=== PATIENT | male | born 1955 | race Caucasian/White ===

== ENCOUNTER 2016-12-22 16:34 | Outpatient (CLI) | payer OTHER ==
[2016-12-22 16:49] LABS: BASOPHILS # (AUTO) 0.1 10^3/uL (0.0-0.1); BASOPHILS % (AUTO) 0.7 %; EOSINOPHILS # (AUTO) 0.3 10^3/uL (0.0-0.7); EOSINOPHILS % (AUTO) 4.6 %; HCT - HEMATOCRIT 40.4 % (42.0-52.0); HGB - HEMOGLOBIN 13.4 g/dL (14.0-18.0); LYMPHOCYTES # (AUTO) 1.9 10^3/uL (1.5-3.5); LYMPHOCYTES % (AUTO) 27.3 %; MEAN CORPUSCULAR HEMOGLOBIN 30.8 pg (27.0-31.0); MEAN CORPUSCULAR VOLUME 93.2 fL (80.0-94.0); MONOCYTES # (AUTO) 0.5 10^3/uL (0.0-1.0); MONOCYTES % (AUTO) 6.7 %; NEUTROPHILS # (AUTO) 4.3 10^3/uL (1.5-6.6); NEUTROPHILS % (AUTO) 60.7 %; RED BLOOD COUNT 4.34 10^6/uL (4.70-6.10); RED CELL DISTRIBUTION WIDTH 13.6 % (12.0-15.0); UNCORRECTED WHITE BLOOD COUNT 7.1 x10^3/uL; WHITE BLOOD COUNT 7.1 x10^3/uL (4.8-10.8)
[2016-12-22 17:09] LABS: ALBUMIN/GLOBULIN RATIO 1.4 (1.0-2.2); BILIRUBIN,TOTAL 0.5 mg/dL (0.2-1.0); BUN - BLOOD UREA NITROGEN 17 mg/dL (6-20); CALCIUM 9.1 mg/dL (8.5-10.3); CARBON DIOXIDE - CO2 25 mmol/L (21-32); CHLORIDE 106 mmol/L (101-111); CHOL/HDL RATIO 3.5 (<5.0); CHOLESTEROL 181 mg/dL; CREATININE 0.9 mg/dL (0.6-1.2); GFR - MDRD 86 (>89); GLUCOSE 92 mg/dL (70-100); HDL CHOLESTEROL 51 mg/dL; LDL/HDL RATIO 2.3 (<3.6); POTASSIUM 3.9 mmol/L (3.5-5.0); SODIUM 138 mmol/L (135-145); TOTAL PROTEIN 7.2 g/dL (6.7-8.2); TRIGLYCERIDES 63 mg/dL; VLDL CHOLESTEROL 13 mg/dL
[2016-12-26 09:53] LABS: TEST RESULT REPORT (())
== END 2016-12-22 16:35 | disposition home or self-care (01) ==
LOC: LAB 16:34
PROVIDERS: ATTEND Physician Assistant Medical
DX: Z00.00 Encounter for general adult medical examination without abnormal findings (principal); Z12.5 Encounter for screening for malignant neoplasm of prostate; E78.2 Mixed hyperlipidemia; Z79.899 Other long term (current) drug therapy; D64.9 Anemia, unspecified; Z72.89 Other problems related to lifestyle
CPT/HCPCS: 36415; 80053; 80061; 81599; 84153; 84443; 85025; 86803

== ENCOUNTER 2017-12-21 09:53 | Outpatient (CLI) | payer OTHER ==
[2017-12-21 12:30] LABS: BASOPHILS % (AUTO) 0.7 %; EOSINOPHILS # (AUTO) 0.3 10^3/uL (0.0-0.7); EOSINOPHILS % (AUTO) 5.3 %; HGB - HEMOGLOBIN 13.9 g/dL (14.0-18.0); LYMPHOCYTES # (AUTO) 1.9 10^3/uL (1.5-3.5); LYMPHOCYTES % (AUTO) 31.5 %; MEAN CORPUSCULAR HEMOGLOBIN 31.5 pg (27.0-31.0); MEAN CORPUSCULAR HGB CONC 33.4 g/dL (32.0-36.0); MEAN CORPUSCULAR VOLUME 94.5 fL (80.0-94.0); MEAN PLATELET VOLUME 8.4 fL (7.4-11.4); MONOCYTES # (AUTO) 0.4 10^3/uL (0.0-1.0); MONOCYTES % (AUTO) 5.9 %; NEUTROPHILS # (AUTO) 3.4 10^3/uL (1.5-6.6); NEUTROPHILS % (AUTO) 56.6 %; PLT - PLATELET COUNT 224 10^3/uL (130-450); RED BLOOD COUNT 4.42 10^6/uL (4.70-6.10); RED CELL DISTRIBUTION WIDTH 13.4 % (12.0-15.0); WHITE BLOOD COUNT 6.1 x10^3/uL (4.8-10.8)
[2017-12-21 13:09] LABS: ALBUMIN 4.2 g/dL (3.2-5.5); ALBUMIN/GLOBULIN RATIO 1.4 (1.0-2.2); ALKALINE PHOSPHATASE 51 IU/L (42-121); ALT ALANINE AMINOTRANSFERASE 18 IU/L (10-60); AST ASPARTATE AMINOTRANSFERASE 22 IU/L (10-42); BILIRUBIN,TOTAL 0.4 mg/dL (0.2-1.0); BUN - BLOOD UREA NITROGEN 15 mg/dL (6-20); CALCIUM 8.9 mg/dL (8.5-10.3); CARBON DIOXIDE - CO2 26 mmol/L (21-32); CHLORIDE 105 mmol/L (101-111); CHOL/HDL RATIO 3.4 (<5.0); CHOLESTEROL 165 mg/dL; GFR - MDRD 76 (>89); GLUCOSE 90 mg/dL (70-100); HDL CHOLESTEROL 49 mg/dL; SODIUM 135 mmol/L (135-145); TOTAL PROTEIN 7.3 g/dL (6.7-8.2)
[2017-12-21 13:28] LABS: LDL CHOLESTEROL,DIRECT 97 mg/dL
== END 2017-12-21 09:54 | disposition home or self-care (01) ==
LOC: LAB.R 09:53
PROVIDERS: ATTEND Physician Assistant Medical
DX: N40.0 Benign prostatic hyperplasia without lower urinary tract symptoms (principal); Z79.899 Other long term (current) drug therapy; D53.9 Nutritional anemia, unspecified; Z00.00 Encounter for general adult medical examination without abnormal findings
CPT/HCPCS: 80053; 80061; 83721; 84153; 84443; 85025

== ENCOUNTER 2018-01-25 10:50 | Outpatient (CLI) | payer OTHER ==
[2018-01-25] MEDS ORDERED: GADOBUTROL 10 MMOL/10 ML VIAL ONE (11:36)
[2018-01-25] MEDS ORDERED: GADOBUTROL 10 MMOL/10 ML VIAL IVP ONE (11:43)
--- NOTE | 2018-01-25 12:39 | MRI Report ---
Procedure Date: 01/25/2018 Accession Number: [id number] / [id number] Procedure: MRI - Brain W/WO CPT Code: FULL RESULT: EXAM: MRI BRAIN WITHOUT AND WITH CONTRAST EXAM DATE: 01/25/2018 11:06 AM. CLINICAL HISTORY: Numbness. Clinical concern for TIA. COMPARISON: None. TECHNIQUE: Multiplanar, multisequence T1-weighted and fluid-sensitive MR sequences of the brain were performed. Sequences optimized for routine evaluation. Other: None. IV Contrast: Without and with 8.5 mL Gadavist. FINDINGS: No restricted diffusion to suggest acute or recent ischemic infarct. No cerebral hemorrhage. No midline shift or abnormal subdural fluid collection. No hydrocephalus. Overall, normal brain volume for age. There is a broad-based sessile plaque-like region of precontrast T1 hyperintensity along the right side of the falx cerebri. This follows fat signal on all pulse sequences and measures 38 mm AP, 18 mm craniocaudal and 7 mm transverse, minimally contouring the adjacent medial service of the right superior frontal gyrus. No signal abnormality of the adjacent brain. No other evidence for intracranial enhancing or space-occupying mass. Contrast opacification of the major dural venous sinuses is present as expected. No focal cerebral white matter disease. The major arterial skull base flow voids are present. Minimal nonspecific paranasal sinus mucosal thickening. IMPRESSION: 1. No acute intracranial abnormality. Unremarkable appearance of the brain. No focal white matter disease. 2. Sessile plaque-like right parafalcine T1 hyperintense collection, incidental lipoma versus asymmetric parafalcine ossification, this could be clarified with noncontrast head CT. RADIA
== END 2018-01-25 10:51 | disposition home or self-care (01) ==
LOC: DI 10:50
PROVIDERS: ATTEND Physician Assistant Medical
DX: R20.0 Anesthesia of skin (principal); I77.810 Thoracic aortic ectasia
CPT/HCPCS: 70553; 93306; A9585

== ENCOUNTER 2018-02-11 15:37 | Outpatient (CLI) | payer OTHER ==
--- NOTE | 2018-02-12 08:18 | Ultrasound Report ---
Procedure Date: 02/11/2018 Accession Number: [id number] / [id number] Procedure: US - Carotid Doppler Complete CPT Code: FULL RESULT: EXAM: BILATERAL CAROTID AND VERTEBRAL ARTERY DUPLEX DOPPLER ULTRASOUND: EXAM DATE: 02/11/2018 04:59 PM. CLINICAL HISTORY: Numbness. COMPARISON: None. TECHNIQUE: Grayscale imaging, color Doppler, and duplex spectral Doppler were used to evaluate the carotid and vertebral arteries bilaterally. Static images were obtained. FINDINGS: There is mild atherosclerotic plaque seen primarily in the left carotid bulb. No significant or ulcerative plaque is identified in the right or left common or internal carotid arteries. Normal antegrade flow is present in bilateral vertebral arteries. VELOCITIES (cm/sec): RIGHT: RCCA Prox: PSV 68 cm/sec. RCCA Dist: PSV 66 cm/sec, EDV 20 cm/sec. RECA: PSV 58 cm/sec. R Bulb: PSV 47 cm/sec, EDV 14 cm/sec, ICA/CCA ratio 0.71. OSITO Prox: PSV 50 cm/sec, EDV 22 cm/sec, ICA/CCA ratio 0.75. OSITO Mid: PSV 59 cm/sec, EDV 32 cm/sec, ICA/CCA ratio 0.89. OSITO Dist: PSV 63 cm/sec, EDV 22 cm/sec, ICA/CCA ratio 0.95. RVA: PSV 28 cm/sec. RVA flow direction: Antegrade. LEFT: LCCA Prox: PSV 65 cm/sec. LCCA Dist: PSV 66 cm/sec, EDV 23 cm/sec. LECA: PSV 60 cm/sec. L Bulb: PSV 31 cm/sec, EDV 17 cm/sec, ICA/CCA ratio 0.46. LICA Prox: PSV 57 cm/sec, EDV 27 cm/sec, ICA/CCA ratio 0.86. LICA Mid: PSV 64 cm/sec, EDV 33 cm/sec, ICA/CCA ratio 0.96. LICA Dist: PSV 65 cm/sec, EDV 28 cm/sec, ICA/CCA ratio 0.98. LVA: PSV 39 cm/sec. LVA flow direction: Antegrade. ICA diameter stenosis: Right: <50% by velocity and <70% by NASCET criteria. Left: <50% by velocity and <70% by NASCET criteria. IMPRESSION: 1. Mild left carotid artery plaquing. 2. In the right carotid artery there are no elevated carotid artery velocities to suggest hemodynamically significant stenosis. 3. In the left carotid artery there are no elevated carotid artery velocities to suggest hemodynamically significant stenosis. 4. Normal antegrade flow is present in bilateral vertebral arteries. General Recommendations: Stenosis =50% ICA - Follow-up ultrasound 6-12 months Stenosis <50% ICA - High Risk Patient with plaque - Follow-up ultrasound 1-2 years Normal Study but High Risk Patient - Follow-up ultrasound 3-5 years Management recommendations and diagnostic criteria are based on current IAC endorsed standards in Carotid Artery Stenosis: Grayscale and Doppler Ultrasound Diagnosis. Validated velocity measurements with angiographic measurements and velocity criteria are extrapolated from diameter data as defined by the Society of Radiologists in Ultrasound Consensus Conference Radiology 2003; 229;340-346. RADIA
== END 2018-02-11 15:38 | disposition home or self-care (01) ==
LOC: DI 15:37
PROVIDERS: ATTEND Physician Assistant Medical
DX: R20.0 Anesthesia of skin (principal)
CPT/HCPCS: 93880

== ENCOUNTER 2018-03-25 08:27 | Outpatient (CLI) | payer OTHER ==
[2018-03-25] MEDS ORDERED: REGADENOSON 0.4 MG/5 ML SYRINGE IVP ONE (10:52)
--- NOTE | 2018-03-25 15:03 | CT Report ---
Reason: ABN MRI FINDING RECOMMENDED NON CONTRAST CT TO CLA Procedure Date: 03/25/2018 Accession Number: [id number] / [id number] Procedure: CT - Head W/O CPT Code: FULL RESULT: EXAM: CT HEAD EXAM DATE: 03/25/2018 08:45 AM. CLINICAL HISTORY: Abnormal MRI finding recommended noncontrast CT to clarify. COMPARISON: Report of MRI of the brain 01/25/2018 (images not available). TECHNIQUE: Multiaxial CT images were obtained from the foramen magnum to the vertex. Reformats: Coronal. IV contrast: None. In accordance with CT protocol optimization, one or more of the following dose reduction techniques were utilized for this exam: automated exposure control, adjustment of mA and/or KV based on patient size, or use of iterative reconstructive technique. FINDINGS: Parenchyma: No intraparenchymal hemorrhage. No evidence of mass, midline shift, or CT findings of infarction. Robison-white differentiation is distinct. There is lobular superior frontal right parafalcine calcification present. This measures 40 x 22 mm in diameter and up to 8 mm in thickness. This may correspond to the signal abnormality noted on prior MRI. This suggests focal ossification of the falx. No abnormal intracranial fat density mass is appreciated. Extraaxial Spaces: Normal for age. No subdural or epidural collections identified. Ventricles: Normal in size and position. Sinuses and Orbits: Imaged paranasal sinuses, orbits, and mastoids show no significant abnormality. Bones: No evidence of fracture or calvarial defect. Other: None. IMPRESSION: 1. No acute intracranial abnormality. 2. Superior frontal right parafalcine calcification, suggesting ossification. This could represent the abnormality seen on MRI (although comparison with MRI study is not possible at the current time). RADIA
== END 2018-03-25 08:28 | disposition home or self-care (01) ==
LOC: DI 08:27
PROVIDERS: ATTEND Emergency Medicine Emergency Medical Services
DX: G93.89 Other specified disorders of brain (principal)
CPT/HCPCS: 70450

== ENCOUNTER 2018-03-25 08:30 | Outpatient (CLI) | payer OTHER ==
[2018-03-25 16:19] VITALS: BP 100/82
--- NOTE | 2018-03-25 16:49 | Nuclear Medicine Report ---
Procedure Date: 03/25/2018 Accession Number: [id number] / [id number] Procedure: NM - Myocardial Perfusion STR/RST CPT Code: FULL RESULT: EXAM: SINGLE-ISOTOPE EXERCISE STRESS TEST. SINGLE-ISOTOPE AND ONE-DAY REST/STRESS MYOCARDIAL PERFUSION SCANS WITH TOMOGRAPHIC IMAGING, QUANTITATIVE ANALYSIS, WALL MOTION ANALYSIS AND CALCULATION OF EJECTION FRACTION. EXAM DATE: 03/25/2018 03:30 PM. CLINICAL HISTORY: Chest discomfort COMPARISON: None available. TECHNIQUE: A rest myocardial perfusion scan was done with tomography after the intravenous administration of 9.5 mCi Tc-99m sestamibi. After an appropriate delay, a treadmill exercise stress was performed according to department protocol. The patient exercised for 12 minutes and 38 seconds. The maximum heart rate was 143 bpm, which was 90% of the maximum predicted heart rate of 159 bpm. At approximately peak heart rate, 41.3 mCi of Tc-99m sestamibi was injected for stress myocardial perfusion scan. Motion correction was applied when appropriate. Gated tomographic images were obtained for wall motion analysis and computation of left ventricular ejection fraction. FINDINGS: There is a small, mild defect in the mid anteroseptal wall which appears larger on the rest images compared to the stress images and may represent a chest wall attenuation artifact. There is a partially fixed and partially reversible mild to moderate severity apical perfusion defect. Computer analysis: Summed stress score 9 Summed rest score 3 Summed difference score 6 Wall motion analysis demonstrates no focal wall motion abnormality The left ventricular end-diastolic volume is 98 cc. The left ventricular end-systolic volume is 32 cc. The left ventricular ejection fraction is calculated to be 68%. IMPRESSION: 1. There is a partially fixed and partially reversible apical perfusion defect. There is a mild defect in the mid anteroseptal wall which appears larger on the rest images and may represent soft tissue attenuation artifact. 2. Normal left ventricular ejection fraction of 68%. 3. Normal segmental and global wall motion. 4. Normal left ventricular cavity size, no change with stress. 5. Based on computer analysis, moderately abnormal study with moderate ischemia. Based on visual analysis, this is probably an overestimate. RADIA
--- NOTE | 2018-03-25 19:43 | CARDIAC PROCEDURE NOTE ---
DATE OF SERVICE: 03/25/2018 Testing BREWING DIRECTOR: RAÚL Rodriguez PCP: Holly Carrero PA-C. PROCEDURE: MPS treadmill stress test. REASON FOR PROCEDURE: Chest pain. CARDIAC RISK FACTORS: Age, Hyperlipidemia. PREVIOUS CARDIAC PROCEDURES: MPS around 4 years ago. PREDICTED EXERCISE TIME: min:sec 8:05 to 8:40. CLINICAL HISTORY: A 62-year-old male without known coronary artery disease. INITIAL RESTING VITAL SIGNS: BP 100/74. Heart rate 56. Height 68 inches. Weight 192 pounds. BMI 28.8. PROCEDURE AND FINDINGS: The patient identity and date verified. Consent signed. The patient performed treadmill exercise, using a Xavi protocol, completing 12 minutes 38 seconds and completing an estimated workload of 13.48 metabolic equivalents. Maximal blood pressure was 146/70 with a heart rate of 143 beats per minute or 89% of maximum predicted heart rate for age. At peak exercise, Cardiolite was injected, and the patient exercised for a full minute longer. The blood pressure response to exercise was within normal limits. The patient stopped because target heart rate plus 1 minute had been reached. The resting ECG demonstrated normal sinus rhythm with no abnormality. Maximum ST segment depression was less than 0.5 mm and upsloping. There was no ectopy. The one minute heart rate recovery was within normal limits. FINAL IMPRESSIONS: 1. Overall, good quality test, artifact present. 2. Negative stress electrocardiogram for ischemia by electrocardiographic criteria. 3. Nondiagnostic stress test clinically for angina. The patient had pain and paresthesias from his left neck to his fingers. He related "mild" chest pain. 4. No ectopy nor arrhythmia is noted. 5. Await myocardial perfusion report. TD: 03/25/2018 16:14 MTDD
== END 2018-03-25 08:31 | disposition home or self-care (01) ==
LOC: DI 08:30
PROVIDERS: ATTEND Physician Assistant Medical
DX: I25.9 Chronic ischemic heart disease, unspecified (principal); R07.89 Other chest pain; E78.5 Hyperlipidemia, unspecified
CPT/HCPCS: 78452; 93017; A9500

== ENCOUNTER 2019-05-16 07:36 | Outpatient (CLI) | payer OTHER ==
--- NOTE | 2019-05-16 09:58 | Ultrasound Report ---
Reason: INCISIONAL HERNIA ABDOMINAL Procedure Date: 05/16/2019 Accession Number: [id number] / [id number] Procedure: US - Abdomen Limited CPT Code: FULL RESULT: EXAM: ABDOMEN ULTRASOUND LIMITED, RUQ EXAM DATE: 05/16/2019 08:19 AM. CLINICAL HISTORY: Incisional hernia abdominal. Abdominal pain. COMPARISON: None. TECHNIQUE: Real-time scanning was performed with static images obtained. Focused ultrasound performed of the left upper quadrant of the abdomen at the area of pain. FINDINGS: No abdominal wall hernia was identified. No fluid collections or visible subcutaneous radiopaque foreign bodies. IMPRESSION: No hernia was identified on current imaging. RADIA
== END 2019-05-16 07:37 | disposition home or self-care (01) ==
LOC: DI 07:36
PROVIDERS: ATTEND Nurse Practitioner
DX: K43.2 Incisional hernia without obstruction or gangrene (principal)
CPT/HCPCS: 76705

== ENCOUNTER 2019-07-10 13:06 | Outpatient (CLI) | payer OTHER ==
[2019-07-10 13:54] LABS: BASOPHILS # (AUTO) 0.1 10^3/uL (0.0-0.1); BASOPHILS % (AUTO) 0.7 %; EOSINOPHILS # (AUTO) 0.3 10^3/uL (0.0-0.7); EOSINOPHILS % (AUTO) 4.7 %; LYMPHOCYTES # (AUTO) 2.2 10^3/uL (1.5-3.5); LYMPHOCYTES % (AUTO) 30.3 %; MEAN CORPUSCULAR HGB CONC 32.3 g/dL (32.0-36.0); MEAN PLATELET VOLUME 10.1 fL (7.4-11.4); MONOCYTES # (AUTO) 0.5 10^3/uL (0.0-1.0); MONOCYTES % (AUTO) 6.5 %; NEUTROPHILS # (AUTO) 4.1 10^3/uL (1.5-6.6); NEUTROPHILS % (AUTO) 57.5 %; PLT - PLATELET COUNT 229 10^3/uL (130-450); RED CELL DISTRIBUTION WIDTH 13.3 % (12.0-15.0); WHITE BLOOD COUNT 7.2 x10^3/uL (4.8-10.8)
== END 2019-07-10 13:07 | disposition home or self-care (01) ==
LOC: LAB 13:06
PROVIDERS: ATTEND Orthopaedic Surgery
DX: Z01.818 Encounter for other preprocedural examination (principal)
CPT/HCPCS: 36415; 85025; 93005

== ENCOUNTER 2020-03-30 10:17 | Outpatient (CLI) | payer OTHER | END 2020-03-30 10:18 | disposition home or self-care (01) | LOC: DI 10:17 | PROVIDERS: ATTEND Nurse Practitioner | DX: I77.810 Thoracic aortic ectasia (principal) | CPT/HCPCS: 93306 ==

== ENCOUNTER 2020-09-24 08:00 | Outpatient (CLI) | payer OTHER ==
[2020-09-24 18:32] LABS: BASOPHILS % (AUTO) 0.6 %; EOSINOPHILS # (AUTO) 0.2 10^3/uL (0.0-0.7); EOSINOPHILS % (AUTO) 2.3 %; HGB - HEMOGLOBIN 11.6 g/dL (14.0-18.0); LYMPHOCYTES # (AUTO) 1.8 10^3/uL (1.5-3.5); LYMPHOCYTES % (AUTO) 25.1 %; MEAN CORPUSCULAR HEMOGLOBIN 26.4 pg (27.0-31.0); MEAN CORPUSCULAR HGB CONC 30.5 g/dL (32.0-36.0); MEAN CORPUSCULAR VOLUME 86.4 fL (80.0-94.0); MEAN PLATELET VOLUME 10.8 fL (7.4-11.4); MONOCYTES # (AUTO) 0.3 10^3/uL (0.0-1.0); MONOCYTES % (AUTO) 4.1 %; NEUTROPHILS # (AUTO) 4.8 10^3/uL (1.5-6.6); NEUTROPHILS % (AUTO) 67.6 %; PLT - PLATELET COUNT 315 10^3/uL (130-450); RED CELL DISTRIBUTION WIDTH 16.1 % (12.0-15.0); WHITE BLOOD COUNT 7.1 x10^3/uL (4.8-10.8)
[2020-09-24 18:53] LABS: ALBUMIN 4.4 g/dL (3.2-5.5); ALBUMIN/GLOBULIN RATIO 1.3 (1.0-2.2); ALKALINE PHOSPHATASE 48 IU/L (42-121); ALT ALANINE AMINOTRANSFERASE 17 IU/L (10-60); AST ASPARTATE AMINOTRANSFERASE 22 IU/L (10-42); BILIRUBIN,TOTAL 0.6 mg/dL (0.2-1.0); BUN - BLOOD UREA NITROGEN 22 mg/dL (6-20); CALCIUM 9.6 mg/dL (8.5-10.3); CARBON DIOXIDE - CO2 25 mmol/L (21-32); CHLORIDE 106 mmol/L (101-111); CHOLESTEROL 203 mg/dL; GFR - MDRD 75 (>89); GLUCOSE 99 mg/dL (70-100); HDL CHOLESTEROL 51 mg/dL; LDL CHOLESTEROL,CALCULATED 132 mg/dL; LDL/HDL RATIO 2.6 (<3.6); POTASSIUM 4.4 mmol/L (3.5-5.0); SODIUM 139 mmol/L (135-145); TOTAL PROTEIN 7.9 g/dL (6.7-8.2); TRIGLYCERIDES 100 mg/dL; VLDL CHOLESTEROL 20 mg/dL
[2020-09-24 19:00] LABS: THYROID STIMULATING HORMONE 0.85 uIU/mL (0.34-5.60)
[2020-09-24 19:01] LABS: FREE T4 (FREE THYROXINE) 0.88 ng/dL (0.58-1.64)
[2020-09-24 19:02] LABS: FREE T3 2.67 pg/mL (2.5-3.9)
== END 2020-09-24 23:59 | disposition home or self-care (01) ==
LOC: LAB.WCP 08:00
PROVIDERS: ATTEND Nurse Practitioner
DX: Z00.00 Encounter for general adult medical examination without abnormal findings (principal); Z79.899 Other long term (current) drug therapy; D53.9 Nutritional anemia, unspecified; E78.2 Mixed hyperlipidemia; N40.0 Benign prostatic hyperplasia without lower urinary tract symptoms; K21.9 Gastro-esophageal reflux disease without esophagitis; R00.1 Bradycardia, unspecified
CPT/HCPCS: 36415; 80053; 80061; 83721; 84153; 84439; 84443; 84481; 85025

== ENCOUNTER 2021-10-07 15:26 | Outpatient (CLI) | payer OTHER | END 2021-10-07 15:27 | disposition critical access hospital (66) | LOC: EMS 15:26 | DX: S70.12XA Contusion of left thigh, initial encounter (principal); W11.XXXA Fall on and from ladder, initial encounter; Y92.008 Other place in unspecified non-institutional (private) residence as the place of occurrence of the external cause | CPT/HCPCS: A0425; A0429 ==

== ENCOUNTER 2021-10-07 15:41 | Emergency (ER) | payer OTHER ==
--- NOTE | 2021-10-07 15:53 | ED Physician Documentation ---
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 He was painting at home and on a ladder perhaps 4-5 rungs up when he fell. He fell onto a [place] countertop. Had sudden pain in the left thigh where there is a large contusion. His asked him to remain on the ground while she summoned 911. On the scene he was placed in a cervical collar due to history of cervical stenosis however he did ambulate to the [facility] on scene. There was no lapse in consciousness. He is denying pain in his chest or low back. Patient does have a buprenorphine patch on Review of Systems Constitutional: denies: Fever, Chills Eyes: reports: Reviewed and negative Ears: reports: Reviewed and negative Nose: reports: Reviewed and negative Throat: reports: Reviewed and negative Cardiac: reports: Reviewed and negative Respiratory: reports: Reviewed and negative GI: reports: Reviewed and negative : denies: Dysuria, Frequency, Hesitancy Skin: reports: Abrasion (s) (Large contusion and abrasion left lateral thigh) Musculoskeletal: reports: Neck pain, Extremity pain Neurologic: denies: Generalized weakness, Focal weakness, Numbness, Difficulty speaking, Syncope, Seizure, Confused, Headache, Head injury, LOC Psychiatric: reports: Reviewed and negative Endocrine: reports: Reviewed and negative PD PAST MEDICAL HISTORY - Past Medical History Cardiovascular: None Respiratory: None Endocrine/Autoimmune: None GI: GERD : Benign prostate hypertrophy HEENT: None Musculoskeletal: Osteoarthritis Derm: None - Past Surgical History General: Colonoscopy - Present Medications Home Medications: Ambulatory Orders Medication Instructions Recorded Confirmed Esomeprazole Magnesium [Nexium] 20 mg PO BID 01/05/13 01/05/13 Simvastatin [Zocor] 40 mg PO QPM 01/05/13 01/05/13 raNITIdine HCL [Ranitidine HCl] 150 mg PO 01/05/13 01/05/13 - Allergies Allergies/Adverse Reactions: Allergies Allergy/AdvReac Type Severity Reaction Status Date / Time sulindac Allergy Dizziness Verified 10/07/21 16:06 PD ED PE EXPANDED - General General: Alert, No acute distress, Well developed/nourished, Other (in c-collar) - Neck Neck: Supple w/out meningeal sx, Soft tissue TTP, Other (1700: I personally remove the cervical collar. Once this collar was removed patient had full range of motion of the neck. No midline tenderness was elicited.). No: Limited ROM - Cardiac Cardiac: Regular Rate, Radial strong equal, Femoral strong equal, Pedal strong equal, Cap refill < 2 sec, Other (paced) - Respiratory Respiratory: Clear to ausultation jethro. No: Distress, Labored - Abdomen Abdomen: Normal Bowel sounds. No: Tender to palpation - Back Back: No: Vertebral tenderness, Soft tissue tenderness - Derm Derm: Abrasion (s), Bruising (Large area of bruising/ecchymosis left lateral thigh) - Extremities Extremities: Left hip (Pain in the left thigh with flexion of the hip. Unable to internally or externally rotate), Left thigh - Neuro Neuro: Alert and Oriented X 3, CNII-XII intact, Normal finger nose, Normal speech - GCS Eye Opening: Spontaneous Motor: Obeys Commands Verbal: Oriented Total: 15 Results - Vitals Vitals: Vital Signs - 24 hr 10/07/21 16:06 Temperature 36.7 C Heart Rate 60 Respiratory 16 Rate Blood Pressure 120/80 O2 Saturation 97 Oxygen O2 Source Room air - Rads (name of study) cxr Radiology: Final report received (No acute cardiopulmonary process) cervical spine ct Radiology: Final report received (No acute fracture or dislocation. Severe degenerative disc disease) left femur Radiology: Final report received (No acute fracture or osseous process) left hip Radiology: Final report received (No acute fracture or dislocation noted. No acute osseous process) PD MEDICAL DECISION MAKING - ED course Complexity details: reviewed results, re-evaluated patient, considered differential, d/w patient ED course: 65-year-old male presents emergency department for evaluation of acute left lateral thigh pain after falling off a ladder from 4-5 rungs up. He initially struck a [place] countertop before hitting the floor. He is not anticoagulated there was no strike to the head and no loss of consciousness. He was ambulatory on scene for EMS though he did arrive here with a rigid cervical collar in place. On exam he has some tenderness of the left lateral thigh in the area where there is a large bruise and abrasion. See TE imaging of the cervical spine showed no acute fracture or dislocation. He does have known severe disc disease and spinal stenosis. I did personally remove the cervical collar at 1700. He has full range of motion of the neck without paresthesias. For this, his pain is managed with a buprenorphine patch. Chest x-ray, hip pelvis and left femur imaging are all negative for acute fracture or dislocation. Patient is ambulatory without assistance here in the emergency department. My suspicion for an occult fracture is rather low given exam findings. Patient is discharged home. Discussed Tristan wrap of the thigh for pain. Due to the buprenorphine patch unable to provide any additional analgesia beyond Tylenol. Emergent return precautions were discussed Departure - Departure Disposition: Home, Self Care Clinical Impression: Contusion of left thigh, initial encounter Fall from ladder Qualifiers: Encounter type: initial encounter Qualified Code(s): W11.XXXA - Fall on and from ladder, initial encounter Condition: Stable Record reviewed to determine appropriate education?: Yes Instructions: ED Contusion Lower Extr Ch Comments: Ángel you were seen in the emergency department today after a fall from your ladder at home. We did do CT imaging of your neck and there are no broken bones though it is clear you have degenerative disc disease of your cervical spine. Your chest x-ray is normal. The x-ray of your hip and leg also showed no fractures. You do have a large bruise/abrasion on the lateral thigh. This contusion is something that will resolve over time likely the next 7 to 10 days. I do recommend that you place a cold compress or ice pack on your thigh for 10 minutes 3-4 times a day. Because you have the buprenorphine patch we are unable to prescribe additional analgesia. You can try taking Tylenol at home. But in general contusions will heal well. If at any point you find that your symptoms are worsening, you develop chest pain, shortness of air or have sudden weakness in your arms or legs and please return immediately to the ER for a second evaluation.
--- NOTE | 2021-10-07 16:43 | XRAY Report ---
PROCEDURE: Femur 2V LT INDICATIONS: Follow-up flatter, large contusion mid thigh TECHNIQUE: 2 views of the femur were acquired. COMPARISON: None. FINDINGS: Bones: No fractures or dislocations. No suspicious bony lesions. Soft tissues: No suspicious soft tissue calcifications or masses. IMPRESSION: No visualized acute fracture or dislocation. However, occult injury cannot be excluded. Recommend won rt interval imaging follow-up in 7-10 days as clinically indicated for additional evaluation. Reviewed by: Maranda Schmidt MD on 10/07/2021 4:42 PM PDT Approved by: Maranda Schmidt MD on 10/07/2021 4:42 PM PDT Station ID: [id number]
--- NOTE | 2021-10-07 16:43 | CT Report ---
PROCEDURE: CERVICAL SPINE WO INDICATIONS: Follow-up bladder, history of cervical spine steno TECHNIQUE: Noncontrast 3 mm thick sections acquired from the skull base to the T4 level. Sagittal and coronal r eformats were then constructed. For radiation dose reduction, the following was used: automated exp osure control, adjustment of mA and/or kV according to patient size. COMPARISON: None. FINDINGS: Image quality: Excellent. Bones: No fractures or dislocations. Visualized superior ribs are intact. Multilevel degenerative disc space narrowing is present. Soft tissues: Prevertebral soft tissues are normal in thickness. No paravertebral hematomas. No ap ical pneumothoraces. IMPRESSION: Multilevel degenerative changes without visualized fracture. Reviewed by: Maranda Schmidt MD on 10/07/2021 4:41 PM PDT Approved by: Maranda Schmidt MD on 10/07/2021 4:41 PM PDT Station ID: [id number]
--- NOTE | 2021-10-07 16:44 | XRAY Report ---
PROCEDURE: Hip w/Pelvis 2-3V LT INDICATIONS: fall from ladder TECHNIQUE: AP pelvis with lateral view(s) of the left hip(s). COMPARISON: None. FINDINGS: Bones: No fractures or dislocations. Pelvic ring appears intact. No suspicious bony lesions. Soft tissues: The visualized bowel gas pattern is normal. No suspicious soft tissue calcifications. IMPRESSION: No acute fracture. No osseous lesion. If symptoms and/or clinical suspicion for patholog y continue, further assessment with repeat plain films, or advanced imaging (e.g., CT, MRI, or bone s can) is recommended for further assessment. Reviewed by: Clifford Orr MD on 10/07/2021 4:43 PM PDT Approved by: Clifford Orr MD on 10/07/2021 4:43 PM PDT Station ID: [id number]
--- NOTE | 2021-10-07 16:44 | XRAY Report ---
PROCEDURE: Chest 1 View X-Ray INDICATIONS: chest pain TECHNIQUE: One view of the chest was acquired. COMPARISON: None FINDINGS: Surgical changes and devices: Right-sided pacer is intact. Lungs and pleura: No pleural effusions or pneumothorax. Lungs are clear. Mediastinum: Mediastinal contours appear normal. Heart size is mildly prominent. Bones and chest wall: No suspicious bony lesions. Overlying soft tissues appear unremarkable. IMPRESSION: No acute pulmonary process. Reviewed by: Maranda Schmidt MD on 10/07/2021 4:43 PM PDT Approved by: Maranda Schmidt MD on 10/07/2021 4:43 PM PDT Station ID: [id number]
[2021-10-07 17:20] VITALS: BP 110/71
== END 2021-10-07 17:16 | disposition home or self-care (01) ==
LOC: EDUNIT# → ED 15:41
DX: S70.12XA Contusion of left thigh, initial encounter (principal); W11.XXXA Fall on and from ladder, initial encounter; Y93.89 Activity, other specified; Y92.009 Unspecified place in unspecified non-institutional (private) residence as the place of occurrence of the external cause
CPT/HCPCS: 99283; 99284

== ENCOUNTER 2021-11-10 10:27 | Outpatient (CLI) | payer MEDICARE, OTHER ==
[2021-11-10 10:47] LABS: BASOPHILS # (AUTO) 0.1 10^3/uL (0.0-0.1); BASOPHILS % (AUTO) 0.9 %; EOSINOPHILS # (AUTO) 0.3 10^3/uL (0.0-0.7); EOSINOPHILS % (AUTO) 4.1 %; HCT - HEMATOCRIT 37.6 % (42.0-52.0); HGB - HEMOGLOBIN 12.3 g/dL (14.0-18.0); LYMPHOCYTES # (AUTO) 1.9 10^3/uL (1.5-3.5); MEAN CORPUSCULAR HGB CONC 32.7 g/dL (32.0-36.0); MEAN CORPUSCULAR VOLUME 94.7 fL (80.0-94.0); MEAN PLATELET VOLUME 9.7 fL (7.4-11.4); MONOCYTES # (AUTO) 0.4 10^3/uL (0.0-1.0); MONOCYTES % (AUTO) 5.9 %; NEUTROPHILS % (AUTO) 59.9 %; PLT - PLATELET COUNT 218 10^3/uL (130-450); RED BLOOD COUNT 3.97 10^6/uL (4.70-6.10); RED CELL DISTRIBUTION WIDTH 13.2 % (12.0-15.0); WHITE BLOOD COUNT 6.6 x10^3/uL (4.8-10.8)
[2021-11-10 11:09] LABS: ALBUMIN/GLOBULIN RATIO 1.4 (1.0-2.2); ALKALINE PHOSPHATASE 49 IU/L (42-121); ALT ALANINE AMINOTRANSFERASE 17 IU/L (10-60); AST ASPARTATE AMINOTRANSFERASE 25 IU/L (10-42); BILIRUBIN,TOTAL 0.4 mg/dL (0.2-1.0); BUN - BLOOD UREA NITROGEN 20 mg/dL (6-20); CALCIUM 9.2 mg/dL (8.5-10.3); CARBON DIOXIDE - CO2 24 mmol/L (21-32); CHLORIDE 106 mmol/L (101-111); CHOL/HDL RATIO 3.4 (<5.0); CHOLESTEROL 157 mg/dL; GFR - MDRD 75 (>89); GLUCOSE 111 mg/dL (70-100); HDL CHOLESTEROL 46 mg/dL; LDL CHOLESTEROL,CALCULATED 97 mg/dL; LDL/HDL RATIO 2.1 (<3.6); POTASSIUM 4.1 mmol/L (3.5-5.0); SODIUM 140 mmol/L (135-145); TOTAL PROTEIN 6.8 g/dL (6.7-8.2); TRIGLYCERIDES 69 mg/dL; VLDL CHOLESTEROL 14 mg/dL
== END 2021-11-10 10:28 | disposition home or self-care (01) ==
LOC: LAB 10:27
PROVIDERS: ATTEND Physician Assistant Medical
DX: E78.2 Mixed hyperlipidemia (principal); N40.0 Benign prostatic hyperplasia without lower urinary tract symptoms; D53.9 Nutritional anemia, unspecified
CPT/HCPCS: 36415; 80053; 80061; 83721; 84153; 85025

== ENCOUNTER 2023-01-07 07:35 | Outpatient (CLI) | payer MEDICARE, OTHER ==
[2023-01-07 07:55] LABS: BASOPHILS # (AUTO) 0.1 10^3/uL (0.0-0.1); BASOPHILS % (AUTO) 0.7 %; EOSINOPHILS # (AUTO) 0.3 10^3/uL (0.0-0.7); HCT - HEMATOCRIT 41.2 % (42.0-52.0); HGB - HEMOGLOBIN 13.8 g/dL (14.0-18.0); LYMPHOCYTES # (AUTO) 2.1 10^3/uL (1.5-3.5); LYMPHOCYTES % (AUTO) 29.8 %; MEAN CORPUSCULAR HGB CONC 33.5 g/dL (32.0-36.0); MEAN CORPUSCULAR VOLUME 95.6 fL (80.0-94.0); MEAN PLATELET VOLUME 9.1 fL (7.4-11.4); MONOCYTES # (AUTO) 0.4 10^3/uL (0.0-1.0); MONOCYTES % (AUTO) 6.1 %; NEUTROPHILS # (AUTO) 4.1 10^3/uL (1.5-6.6); NEUTROPHILS % (AUTO) 59.3 %; PLT - PLATELET COUNT 228 10^3/uL (130-450); RED BLOOD COUNT 4.31 10^6/uL (4.70-6.10); RED CELL DISTRIBUTION WIDTH 13.2 % (12.0-15.0); WHITE BLOOD COUNT 6.9 x10^3/uL (4.8-10.8)
[2023-01-07 08:14] LABS: % IRON SATURATION 19 % (20-50); ALBUMIN 3.8 g/dL (3.2-5.5); ALBUMIN/GLOBULIN RATIO 1.2 (1.0-2.2); ALKALINE PHOSPHATASE 42 IU/L (42-121); ALT ALANINE AMINOTRANSFERASE 16 IU/L (10-60); AST ASPARTATE AMINOTRANSFERASE 19 IU/L (10-42); BILIRUBIN,TOTAL 0.6 mg/dL (0.2-1.0); BUN - BLOOD UREA NITROGEN 21 mg/dL (6-20); CARBON DIOXIDE - CO2 27 mmol/L (21-32); CHLORIDE 106 mmol/L (101-111); CHOL/HDL RATIO 3.3 (<5.0); CHOLESTEROL 166 mg/dL; GFR - MDRD 75 (>89); GLUCOSE 114 mg/dL (70-100); HDL CHOLESTEROL 50 mg/dL; IRON 55 ug/dL (45-182); LDL CHOLESTEROL,CALCULATED 98 mg/dL; POTASSIUM 4.2 mmol/L (3.5-5.0); SODIUM 138 mmol/L (135-145); TOTAL IRON BINDING CAPACITY 297 ug/dL (250-450); TOTAL PROTEIN 6.9 g/dL (6.7-8.2); TRANSFERRIN 212 mg/dL (180-329); TRIGLYCERIDES 89 mg/dL; VLDL CHOLESTEROL 18 mg/dL
[2023-01-07 08:29] LABS: FERRITIN 63.6 ng/mL (23.9-336.2)
[2023-01-07 09:52] LABS: ESTIMATED AVERAGE GLUCOSE 105 mg/dL (70-100); HEMOGLOBIN A1c% 5.3 % (4.27-6.07)
[2023-01-10 08:09] LABS: HCV AB Reactive (Non Reactive); HCV IU/ML HCV Not Detected IU/mL (.); HCV RNA QUANTITATION HCV Not Detected IU/mL (.)
== END 2023-01-07 07:36 | disposition home or self-care (01) ==
LOC: LAB 07:35
PROVIDERS: ATTEND Physician Assistant Medical
DX: E78.2 Mixed hyperlipidemia (principal); R76.0 Raised antibody titer; R73.9 Hyperglycemia, unspecified; D64.9 Anemia, unspecified
CPT/HCPCS: 36415; 80053; 80061; 82607; 82728; 83036; 83540; 83721; 84466; 85025; 86803; 87522

== ENCOUNTER 2024-02-18 10:08 | Outpatient (CLI) | payer MEDICARE, OTHER ==
[2024-02-18 10:35] LABS: BASOPHILS % (AUTO) 0.6 %; EOSINOPHILS # (AUTO) 0.3 10^3/uL (0.0-0.7); EOSINOPHILS % (AUTO) 4.2 %; HCT - HEMATOCRIT 41.9 % (42.0-52.0); HGB - HEMOGLOBIN 13.5 g/dL (14.0-18.0); LYMPHOCYTES # (AUTO) 1.8 10^3/uL (1.5-3.5); LYMPHOCYTES % (AUTO) 26.9 %; MEAN CORPUSCULAR HEMOGLOBIN 31.5 pg (27.0-31.0); MEAN CORPUSCULAR HGB CONC 32.2 g/dL (32.0-36.0); MEAN CORPUSCULAR VOLUME 97.7 fL (80.0-94.0); MEAN PLATELET VOLUME 9.7 fL (7.4-11.4); MONOCYTES # (AUTO) 0.5 10^3/uL (0.0-1.0); MONOCYTES % (AUTO) 6.9 %; NEUTROPHILS # (AUTO) 4.1 10^3/uL (1.5-6.6); NEUTROPHILS % (AUTO) 61.1 %; PLT - PLATELET COUNT 227 10^3/uL (130-450); RED BLOOD COUNT 4.29 10^6/uL (4.70-6.10); RED CELL DISTRIBUTION WIDTH 13.4 % (12.0-15.0); WHITE BLOOD COUNT 6.7 x10^3/uL (4.8-10.8)
[2024-02-18 10:56] LABS: ALBUMIN 4.4 g/dL (3.2-5.5); ALBUMIN/GLOBULIN RATIO 1.8 (1.0-2.2); ALKALINE PHOSPHATASE 52 IU/L (42-121); ALT ALANINE AMINOTRANSFERASE 15 IU/L (10-60); AST ASPARTATE AMINOTRANSFERASE 16 IU/L (10-42); BILIRUBIN,TOTAL 0.4 mg/dL (0.2-1.0); BUN - BLOOD UREA NITROGEN 25 mg/dL (6-20); CALCIUM 9.7 mg/dL (8.5-10.3); CARBON DIOXIDE - CO2 28 mmol/L (21-32); CHLORIDE 107 mmol/L (101-111); CHOL/HDL RATIO 3.7 (<5.0); CHOLESTEROL 161 mg/dL; GFR - MDRD 75 (>89); GLUCOSE 101 mg/dL (74-104); HDL CHOLESTEROL 44 mg/dL; LDL CHOLESTEROL,CALCULATED 99 mg/dL; LDL/HDL RATIO 2.3 (<3.6); POTASSIUM 4.2 mmol/L (3.5-4.5); SODIUM 139 mmol/L (135-145); TOTAL PROTEIN 6.9 g/dL (6.4-8.9); TRIGLYCERIDES 88 mg/dL; VLDL CHOLESTEROL 18 mg/dL
[2024-02-18 15:01] LABS: ESTIMATED AVERAGE GLUCOSE 103 mg/dL (70-100); HEMOGLOBIN A1c% 5.2 % (4.27-6.07)
--- NOTE | 2024-02-18 21:21 | XRAY Report ---
PROCEDURE: Ankle 3+V BL INDICATIONS: BILATERAL ANKLE PAIN TECHNIQUE: 3 views of the ankle were acquired. COMPARISON: None. FINDINGS: Bones: No fractures or dislocations. Ankle mortise is normally aligned. No suspicious bony lesions . Small bilateral plantar calcaneal spurs. Soft tissues: Trace right tibiotalar joint effusion. Achilles tendon appears normal. IMPRESSION: No acute bony abnormality. Mild degenerative changes. Reviewed by: Prudencio Stearns MD on 02/18/2024 9:20 PM PDT Approved by: Prudencio Stearns MD on 02/18/2024 9:20 PM PDT Station ID: [id number]
== END 2024-02-18 10:09 | disposition home or self-care (01) ==
LOC: LAB 10:08
PROVIDERS: ATTEND Physician Assistant Medical
DX: E78.2 Mixed hyperlipidemia (principal); R00.1 Bradycardia, unspecified; R73.9 Hyperglycemia, unspecified; N40.0 Benign prostatic hyperplasia without lower urinary tract symptoms; D64.9 Anemia, unspecified; M19.072 Primary osteoarthritis, left ankle and foot; M19.071 Primary osteoarthritis, right ankle and foot
CPT/HCPCS: 36415; 80053; 80061; 81599; 83036; 83721; 84153; 85025